=== PATIENT | male | born 1995 | race Caucasian/White ===

== ENCOUNTER 2016-11-20 14:01 | Emergency (ER) | payer OTHER ==
[~2016-11-20] VITALS: Ht 170.2 cm; Wt 72.6 kg
[2016-11-20 14:08] VITALS: BP 130/71; TEMP 37; Ht 170.2 cm; Wt 72.6 kg
[2016-11-20] MEDS ORDERED: ACETAMINOPHEN 500 MG TAB PO STA (14:37)
[2016-11-20] MEDS ORDERED: TRAM-10 PO (14:39)
[2016-11-20] MEDS ORDERED: ONDA4TAB10 SL (14:39)
[2016-11-20 14:57] VITALS: PULSE 75; O2SAT 97
--- NOTE | 2016-11-20 15:47 | EMERGENCY ROOM VISIT NOTE ---
History First contact with patient: 14:13 Chief Complaint: HEAD INJURY (MINOR) Stated Complaint: CONCUSSION History of Present Illness The patient is a 21 year old male who presents to the Emergency Room with complaints of a headache after suffering a closed head injury Friday night while playing intramural hockey. The patient reports that he fell and slid into the boards. The patient denies any loss of consciousness, neck pain, back pain or other injuries. The patient reports photophobia, headache, decreased appetite and inability to concentrate. He reports that his headache is mostly temporal in location. The patient denies any prior history of concussions. His pain is usually worsened with activity, improved with rest. He currently rates his discomfort a 5 out of 10. Review of Systems 10 system review was performed and was negative except for pertinent positives and negatives as indicated in history of present illness Past Medical/Surgical History Medical Problems: (1) Asthma Surgical Problems: (1) No history of previous surgery Family History FH: cancer Social History Smoking Status: Never Smoker Alcohol Use: none Marital Status: single Occupation Status: [employer] student Current/Historical Medications Scheduled Ondasetron Odt (Zofran Odt), 4 MG SL Q6H Scheduled PRN Tramadol (Ultram), 1-2 TAB PO Q4H PRN for Pain Allergies Coded Allergies: No Known Allergies (Unverified , 11/20/16) Physical Exam Vital Signs Date Time Temp Pulse Resp B/P Pulse Ox O2 Delivery O2 Flow Rate FiO2 11/20/16 14:57 75 97 Room Air 11/20/16 14:08 37.0 74 18 130/71 99 Room Air Pain Rating (0-10): 0 Physical Exam CONSTITUTIONAL: Healthy and well nourished. Alert and oriented X 3 with positive affect. GCS 15. HEENT: Normocephalic, atraumatic. Pupils equal, round and reactive. No hemotympanum, epistaxis, subconjunctival hemorrhage, raccoon's eyes or Richardson sign. NECK: Full active range of motion without discomfort. No tenderness to palpation through the cervical musculature or central cervical spine. RESPIRATORY: Clear to auscultation bilaterally with no wheezing, crackles, rhonchi or stridor. CARDIOVASCULAR: Regular rate and rhythm with no murmurs, rubs or gallops. MUSCULOSKELETAL: Full range of motion of all joints without discomfort. No tenderness to palpation through the shoulders or back. INTEGUMENTARY: No rash or other significant dermatologic conditions noted. NEUROLOGIC: No focal neurologic deficits noted. Upper and lower extremity's are sensory intact. Medical Decision & Procedures Medications Administered Medications (Trade) Dose Ordered Sig/Jorden Route Start Time Stop Time Status Last Admin Dose Admin Acetaminophen (Tylenol Tab) 1,000 mg NOW STAT PO 11/20/16 14:37 11/20/16 14:38 DC 11/20/16 14:51 1,000 MG ED Course Patient history and physical exam were performed. Nurse's notes were reviewed. Vital signs were reviewed and were normal. The patient does not have any focal findings on exam. The patient admits that his symptoms did improve after walking across campus. The patient was advised that his symptoms would typically worsen with a concussion. We discussed further workup, including CT imaging. At this point, the patient is electing conservative management, and will return for any progressively worsening symptoms. The patient was provided prescriptions for Ultram and Zofran as needed for pain or nausea. Otherwise he was instructed to avoid NSAIDs, and take Tylenol as needed for baseline pain relief. He was instructed to return to the emergency department for any progressively worsening symptoms, otherwise may follow up with [facility] as needed. The patient was happy with plan of care, voice understanding of all discharge instructions, and rated his discomfort a 4 out of 10 at the time of discharge. He was administered Tylenol 1 g prior to discharge. Medical Decision Impression Primary Impression: Concussion Departure Information Dispostion Home / Self-Care Condition GOOD Prescriptions Ondasetron Odt (ZOFRAN ODT) 4 Mg Tab 4 MG SL Q6H for Nausea, #6 TAB Prov: Tre Deng PA 11/20/16 Tramadol (Ultram) 50 Mg Tab 1-2 TAB PO Q4H Y for Pain, #10 TAB For Initial Treatment Prov: Tre Deng PA 11/20/16 Referrals No Doctor, Assigned (PCP) Forms HOME CARE DOCUMENTATION FORM, IMPORTANT VISIT INFORMATION Patient Instructions My [facility], ED Concussion Additional Instructions Read concussion handout. Avoid strenuous activities until all symptoms improve. Avoid Advil/ibuprofen/Motrin/Aleve/naproxen for now. Tylenol 1000 mg every 6-8 hours as needed for pain. You have been provided prescriptions for Ultram if needed for worse pain, and Zofran ODT if needed for developing nausea. Return to the emergency department for any progressively worsening symptoms. Follow-up with [facility] as needed for further concussion management. Problem Qualifiers Primary Impression: Concussion Encounter type: initial encounter Loss of consciousness presence/duration: without LOC Qualified Codes: S06.0X0A - Concussion without loss of consciousness, initial encounter
== END 2016-11-20 14:57 | disposition home or self-care (01) ==
LOC: C.EDB 14:05 → C.EDD 14:57
DX: S06.0X0A Concussion without loss of consciousness, initial encounter (principal); W18.01XA Striking against sports equipment with subsequent fall, initial encounter; Y93.22 Activity, ice hockey

== ENCOUNTER 2016-11-21 14:10 | Emergency (ER) | payer OTHER ==
[~2016-11-21] VITALS: Ht 170.2 cm; Wt 72.0 kg
[~2016-11-21 14:10] MED LIST: ONDA4TAB10 SL; TRAM-10 PO
[2016-11-21 14:13] VITALS: TEMP 37.1; Ht 170.2 cm; Wt 72.0 kg
--- NOTE | 2016-11-21 15:05 | DIAGNOSTIC IMAGING REPORT ---
HEAD CT NONCONTRAST CT DOSE: 537.48 mGy.cm HISTORY: Closed head injury w/ persistent concussion symptoms TECHNIQUE: Multiaxial CT images of the head were performed without the use of intravenous contrast. Automated exposure control was utilized for this study. Comparison: None. Findings: The paranasal sinuses and mastoid air cells are clear. The calvarium and skull base are intact. The ventricles and sulci are within normal limits. There is no mass, hematoma, midline shift, or acute infarct. Impression: No acute intracranial abnormality. Electronically signed by: Ryan Lucero M.D. 11/21/2016 3:04 PM Dictated Date/Time: 11/21/2016 2:51 PM
[2016-11-21 15:22] VITALS: BP 107/55; PULSE 60; O2SAT 97
--- NOTE | 2016-11-21 16:13 | EMERGENCY ROOM VISIT NOTE ---
History First contact with patient: 14:15 Chief Complaint: HEAD INJURY (MINOR) Stated Complaint: CONCUSSION History of Present Illness The patient is a 21 year old male who returns to the Emergency Room for a concussion recheck. I evaluated this patient in the emergency department yesterday with concussion symptoms after a hockey accident. After our discussion yesterday, the patient elected conservative management. He was provided prescriptions for Ultram and Zofran ODT. The patient has taken some Ultram without Tylenol, but fell asleep last night before seeing if it helped with the pain. Past Medical/Surgical History Medical Problems: (1) Asthma Surgical Problems: (1) No history of previous surgery Family History FH: cancer Social History Smoking Status: Never Smoker Alcohol Use: none Marital Status: single Occupation Status: [employer] student Current/Historical Medications Scheduled Ondasetron Odt (Zofran Odt), 4 MG SL Q6H Scheduled PRN Tramadol (Ultram), 1-2 TAB PO Q4H PRN for Pain Allergies Coded Allergies: No Known Allergies (Unverified , 11/20/16) Physical Exam Vital Signs Date Time Temp Pulse Resp B/P Pulse Ox O2 Delivery O2 Flow Rate FiO2 11/21/16 15:22 60 16 107/55 97 Room Air 11/21/16 14:13 37.1 65 16 123/67 99 Room Air Physical Exam CONSTITUTIONAL: Healthy and well nourished. Alert and oriented X 3 with positive affect. GCS 15. HEENT: Normocephalic, atraumatic. Pupils equal, round and reactive. No subconjunctival hemorrhage, hemotympanum, raccoon's eyes or Richardson sign. NECK: Full active range of motion without discomfort. RESPIRATORY: Clear to auscultation bilaterally with no wheezing, crackles, rhonchi or stridor. CARDIOVASCULAR: Regular rate and rhythm with no murmurs, rubs or gallops. GASTROINTESTINAL: Bowel sounds present in all quadrants. MUSCULOSKELETAL: Full range of motion of all joints without discomfort. INTEGUMENTARY: No rash or other significant dermatologic conditions noted. NEUROLOGIC: Cranial nerves II-XII grossly intact. No focal neurologic deficits noted. Normal finger to nose test. Negative pronator drift. No ataxia with ambulation. Negative Romberg sign. Medical Decision & Procedures ER Provider Diagnostic Interpretation: Noncontrast CT of the head does not show any fracture, intracranial bleed, midline shift or mass effect. Radiologist report is as follows: HEAD CT NONCONTRAST CT DOSE: 537.48 mGy.cm HISTORY: Closed head injury w/ persistent concussion symptoms TECHNIQUE: Multiaxial CT images of the head were performed without the use of intravenous contrast. Automated exposure control was utilized for this study. Comparison: None. Findings: The paranasal sinuses and mastoid air cells are clear. The calvarium and skull base are intact. The ventricles and sulci are within normal limits. There is no mass, hematoma, midline shift, or acute infarct. Impression: No acute intracranial abnormality. ED Course Patient history and physical exam were performed. Nurse's notes were reviewed. Vital signs were reviewed and were normal. I was also advised earlier in the day by our nursing color control supervisor, Floyd Almaguer, that the mother had called to discuss the patient's treatment from yesterday. Floyd called the patient to get consent to discuss this care with her mother. According to back conversation, the mother was concerned regarding the patient's symptoms. She wants to know why a CT scan was not performed. She also reports that she has been waking him up frequently my calling him overnight. She is also concerned because she is going out of the country. Her nursing color control supervisor explained that we had a lengthy discussion regarding management and need for CT studies. The mother was advised that if the patient has any worsening symptoms, he may certainly return to the emergency department for further evaluation. The patient therefore presented to the emergency department for further evaluation. His clinical and neurologic exam continued to remain normal. The CT scan was performed and was normal. He again was instructed to avoid any strenuous activities or alcohol consumption over the weekend. He was again encouraged to follow-up with [facility] as needed for further concussion management. He is welcome to return here the weekend for any significantly worsening symptoms. Patient was again advised that his head CT is normal. The patient was happy with plan of care, voiced understanding of all discharge instructions, and rated his pain a 3 out of 10 at the time of discharge. At the completion of my exam, the patient requested that I call and speak with his father, Theodore Jacobs, as well. I called the father, whose line was busy as he was testing his son. The father did call emergency department, and I discussed the injury, physical exam findings, our discussion regarding further workup of his concussion, management and need for follow-up with [facility] as needed. This information has been reinforced with the patient now on 2 different visits. The father also questioned medication management, which was also discussed with the patient. The father was happy with the current plan of care. The patient was again instructed to avoid any strenuous activities this weekend, including alcohol consumption. The patient reports that he will follow up with [facility] if his concussion symptoms are not improving by next week. He was instructed to return to the emergency department if symptoms progressively worsen. The patient was happy with plan of care, and rated his discomfort a 4 out of 10 at the time of discharge. Medical Decision Impression Primary Impression: Concussion Departure Information Dispostion Home / Self-Care Forms HOME CARE DOCUMENTATION FORM, IMPORTANT VISIT INFORMATION Patient Instructions My [facility] Additional Instructions Continue to follow instructions per your previous visit. Continue with Tylenol 1000 mg every 6-8 hours. Ultram if needed for worse pain. Zofran ODT if needed for nausea. Refrain from any strenuous activities or sports until all concussion symptoms resolve. Follow-up with [facility] as needed for further concussion management. Problem Qualifiers Primary Impression: Concussion Encounter type: subsequent encounter Loss of consciousness presence/duration : without LOC Qualified Codes: S06.0X0D - Concussion without loss of consciousness, subsequent encounter
== END 2016-11-21 15:24 | disposition home or self-care (01) ==
LOC: C.EDB 14:11 → C.EDD 15:24
DX: Z09 Encounter for follow-up examination after completed treatment for conditions other than malignant neoplasm (principal); S06.0X0D Concussion without loss of consciousness, subsequent encounter; W18.0 Fall due to bumping against object; Y93.22 Activity, ice hockey; J45.909 Unspecified asthma, uncomplicated

== ENCOUNTER 2017-01-25 05:06 | Emergency (ER) | payer OTHER ==
[~2017-01-25] VITALS: Ht 170.2 cm; Wt 70.2 kg
[2017-01-25 05:10] VITALS: TEMP 36.7; Ht 170.2 cm; Wt 70.2 kg
[2017-01-25] MEDS ORDERED: VITB2100 PO (05:40)
[2017-01-25] MEDS ORDERED: OMEG10007 PO (05:40)
--- NOTE | 2017-01-25 05:45 | EMERGENCY ROOM VISIT NOTE ---
History Report prepared by Mack: Marissa Thornton Under the Supervision of: Dr. Michelle Baez D.O. First contact with patient: 05:13 Chief Complaint: HEAD INJURY (MINOR) Stated Complaint: HIT HEAD History of Present Illness The patient is a 21 year old male who presents to the Emergency Room with complaints of an episode of a head injury occurring 2 hours ago. 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 They state that he lost consciousness for 5-10 seconds and came in tonight to make sure that he was okay. The patient states that he has had a concussion before and this does not feel as bad. The patient denies any abdominal pain, back pain, seizure activity, and drug use. He notes that he has not slept since the injury. Source of History: patient, friend Onset: 2 hours ago Position: head Timing: other (episode) Associated Symptoms: No abdominal pain, No back pain Note: Denies seizure activity and drug use. Review of Systems See HPI for pertinent positives & negatives. A total of 10 systems reviewed and were otherwise negative. Past Medical & Surgical Medical Problems: (1) Asthma Surgical Problems: (1) No history of previous surgery Family History FH: cancer Social History Smoking Status: Never Smoker Alcohol Use: none Marital Status: single Occupation Status: [employer] student Current/Historical Medications Scheduled Fish Oil ([place]-3), 4 CAP PO DAILYBB Riboflavin (Vitamin B-2), 100 MG PO DAILY Allergies Coded Allergies: Amoxicillin (Verified Allergy, Unknown, rash, 01/25/17) Physical Exam Vital Signs Date Time Temp Pulse Resp B/P Pulse Ox O2 Delivery O2 Flow Rate FiO2 01/25/17 06:20 82 18 125/62 96 01/25/17 05:10 36.7 96 18 133/81 95 Room Air Physical Exam HEENT: Head - normocephalic. The patient had a fairly large cephalohematoma to the parieto-occipital region of his skull. Pupils are equal, round, 3mm and reactive to light. Extraocular eye muscles are intact and sclera are anicteric. Ears - bilaterally patent canals with no evidence of hemotympanum. Nose - moist nasal mucosa without evidence of trauma or discharge. Mouth - moist buccal mucosa with no trauma to the teeth or signs of malocclusion. Neck: The neck is supple and there is no pain to palpation over the posterior cervical spine and no obvious step-offs or deformities. There is no JVD or tracheal deviation. Chest: There are no signs of deformities, contusions or abrasions to the chest wall. There is no obvious crepitus or paradoxical chest rise. Heart: Regular, rate, and rhythm. There is a normal S1 and S2 with no murmurs, clicks, or gallops appreciated. Lungs: Clear to auscultation bilaterally with no wheezes, rales, or rhonchi. Abdomen: Soft, completely nontender, nondistended, with good bowel sounds. There is no sign of trauma such as contusions, abrasions or penetrations. There are no palpable pulsatile masses or hepatosplenomegaly. There is no guarding, rigidity, or rebound noted. Pelvis: Stable to rock and compression. Extremities: Contusions over medial aspects over both biceps regions. Neuro: The patient is awake and alert and easily able to follow commands. Muscle strength is 5 out of 5 in all 4 extremities. Otherwise, neuro exam is unremarkable. Back: The entire thoracic, lumbar, and sacral spine were palpated. There are no obvious step-offs or deformities noted. There are no obvious signs of trauma such as contusions abrasions penetrations noted to the back. Medical Decision & Procedures ER Provider Diagnostic Interpretation: CT results as stated below per my review and radiologist interpretation: CT HEAD: No intracranial hemorrhage or mass effect. Radiologist: Wander Garcia M.D. ED Course 0518: Past medical records reviewed. The patient was evaluated in room B5. A complete history and physical exam was performed. The patient was fully awake and alert. He went for CT scan of the brain as described above. 0627: Upon reevaluation, the patient is doing well. I discussed findings and results with the patient. He verbalized agreement of the treatment plan. The patient was discharged home. Medical Decision The patient is a 21 year old male who presents to the ED with a head injury. Differential diagnosis includes concussion, skull fracture, intracranial trauma , c-spine injury, closed head injury. The patient describes that he was wrestling with one of his fraternity brothers when he struck the back of his head and had a 5-10 second loss of consciousness. There is no seizure activity noted. We talked about the possibility of head injury versus concussion. CT scan of the brain was unremarkable. I've asked him to follow-up with [facility] services if he has any concussion symptoms. He was encouraged to avoid drinking alcohol today. He should keep himself well- hydrated. Impression Primary Impression: Closed head injury Scribe Attestation The scribe's documentation has been prepared under my direction and personally reviewed by me in its entirety. I confirm that the note above accurately reflects all work, treatment, procedures, and medical decision making performed by me. Departure Information Dispostion Home / Self-Care Referrals No Doctor, Assigned (PCP) Forms HOME CARE DOCUMENTATION FORM, IMPORTANT VISIT INFORMATION Patient Instructions Concussion, My [facility] Additional Instructions Rest with your head elevated to minimize swelling. Take tylenol or ibuprofen for pain. Follow up with [facility] if you have any concussion symptoms
[2017-01-25 06:20] VITALS: BP 125/62; PULSE 82; O2SAT 96
--- NOTE | 2017-01-25 07:43 | DIAGNOSTIC IMAGING REPORT ---
CT HEAD WITHOUT CONTRAST (CT) CLINICAL HISTORY: Head trauma with loss of consciousness COMPARISON STUDY: 11/21/2016 TECHNIQUE: Axial CT of the brain is performed from the vertex to the skull base. IV contrast was not administered for this examination. CT DOSE: 537.48 mGy.cm FINDINGS: No intra or extra-axial mass lesions are visualized. There is no CT evidence of acute cortical infarction. There is no evidence of midline shift. There is no acute hemorrhage. No calvarial fractures are visualized. There is no evidence of pathologic ventricular dilatation. There is no evidence of acute sinusitis IMPRESSION: Normal noncontrast head CT. Electronically signed by: Nahun Cervantes M.D. 01/25/2017 7:41 AM Dictated Date/Time: 01/25/2017 7:39 AM
== END 2017-01-25 06:18 | disposition home or self-care (01) ==
LOC: C.EDB 05:07
DX: S09.90XA Unspecified injury of head, initial encounter (principal); W03.XXXA Other fall on same level due to collision with another person, initial encounter; Y93.83 Activity, rough housing and horseplay; Y92.199 Unspecified place in other specified residential institution as the place of occurrence of the external cause; S40.021A Contusion of right upper arm, initial encounter; S40.022A Contusion of left upper arm, initial encounter; J45.909 Unspecified asthma, uncomplicated